=== PATIENT | female | born 1955 | race Caucasian/White ===

== ENCOUNTER → 2021-03-14 | Outpatient (CLI) | payer BC ==
[~2021-03-14] MED LIST: ALBU8.5H; AZIT20SS; HYDR1SOL
--- NOTE | 2021-03-14 12:13 | RADONC.CN ---
Radiation Oncology Hx/Consult Radiation Oncology Consult Date of Service: Mar 14, 2021 Pt Identifier Daksha Nguyễn is a 65 year old female former smoker with a history of right glottic cancer [id number] stage DIANELYS. She presented with stridor and underwent laryngectomy and partial pharyngectomy with Dr. Blandon on 02/05/21, margins were negative. She is seen for consideration of adjuvant RT. Diagnosis/Treatment History Oncologic History Summer 2020: Noted hoarseness, dysphagia and odynophagia 01/03/21 CT neck: Large right glottic mass eroding through the thyroid cartilage into the prelaryngeal fat, no nodes enlarged 01/28/21 CT chest: No lung lesions concerning for malignancy 02/05/21: Presented with stridor, underwent laryngectomy and partial pharyngectomy ([facility]) [id number] stage DIANELYS, margins negative but <0.1 cm right lateral margin Interval History Reports that she is taking all nutrition through PEG. No pain in the neck or trach. Trach requires frequent suctioning, lots of [id number] mucus. Scant blood at times with brisk cough. Has not established with [facility]. Doing osmolyte 1 can q4h. Wears nocturnal O2 with mist. Lost 20 lbs in past 2 months. Past Medical History: COPD HPL HTN Past Surgical History: As above Family History: Father colon cancer Social History: 50 pack year former smoker Never drinker Allergies / Meds Home Meds Reported Medications Albuterol Sulfate (Albuterol Sulfate Hfa) 8.5 Gm Hfa.aer.ad 03/14/21 Hydrocodone/Acetaminophen (Hydrocodone-Acetamn 7.5-325/15) 118 Ml Solution 03/14/21 Azithromycin (Azithromycin) 200 Mg/5 Ml Susp.recon 03/14/21 Review of Systems Constitutional: Reports: Weight Loss; Denies: Fatigue HEENT: Denies: Head Aches, Ear Pain, Sore Throat Pulmonary: Reports: Dyspnea, Cough Cardiovascular: Reports: Orthopnea; Denies: Chest Pain, Edema Gastrointestinal: Denies: Abdominal Pain Endocrine: Denies: Cold Intolerance Musculoskeletal: Denies: Neck pain Neurological: Denies: Weakness, Numbness Psych: Reports: Mood Normal Vital Signs Ht 62" Wt 115 lbs BMI 21 T 98.7 P 95 RR 18 BP 103/72 O2 97% Pain 0 Fatigue 0 General Exam: Alert, Cooperative, No Acute Distress Eye Exam: PERRLA, EOMI ENT EXAM: Other ENT (Oral cavity exam: Patient is edentulous. No mucosal lesions in the oral cavity visible. ) Neck Exam: Supple, Other (Tracheostomy site with some leak of secretions around flange, stoma healthy, no erythema. ); Negative: Lymphadenopathy Chest Exam: Clear to auscultation, Other (Coarse breath sounds) Heart Exam: Rate Normal, Regular Rhythm Abdomen Exam: Soft; Negative: Tenderness Extremity Exam: Negative: Edema Skin Exam: Nl turgor and temperature Neuro Exam: Normal Gait, Cranial Nerves 3-12 NL Psych Exam: Mental status NL Diagnostic and Laboratory Diagnostic Review Radiologic images, relevant labs and pathology reports were personally reviewed and discussed with Ms. Nguyễn. Assessment and Plan Impression Ms. Nguyễn is a 65 year old female former smoker with a history of right glottic cancer [id number] stage DIANELYS. She presented with stridor and underwent laryngectomy and partial pharyngectomy with Dr. Blandon on 02/05/21, margins were negative. She is seen for consideration of adjuvant RT. Stage Right glottic SCC [id number] stage DIANELYS Performance Status ECOG 1 Plan We had an extensive discussion with Ms. Nguyễn regarding the diagnosis at hand and available therapeutic options. She has healed well from her surgery. She remains NPO with PEG nut rition/hydration. I offered referral to [facility] here which will be helpful for her as she is fed and rehabilitates her swallowing after treatment is complete. Her tumor was completely excised with no positive margins, therefore she does not have an indication for adjuvant chemoradiation, rather RT alone will suffice. I recommend 60 Gy in 30 fractions to the laryngectomy bed, and stoma, with 54 Gy to the BL necks levels II-IV. I will use VMAT and daily CBCT to respect her normal tissues. We discussed the logistics of receiving radiation therapy in detail including the need for a 1-time planning session. This can occur the week of 03/18/21. We discussed the side effects of RT including fatigue, skin reaction, pain, dysphagia, dysgeusia, hypothyroidism, xerostomia. After discussing the risks, benefits and alternatives to radiation therapy, Ms. Nguyễn was amenable to pursuing radiotherapy. All questions were answered to the patient's satisfaction. We instructed the patient that if there were any questions,concerns or changes in clinical status in the interim to contact us. Recommendations Adjuvant RT 60 Gy in 30 fractions with VMAT Simulation next week Referral to [facility] Billing Statement Total time of [51] minutes was spent preparing for the visit [5], obtaining HPI [8], examining the patient [8], reviewing diagnostic tests [5], discussing m anagement options [13], coordinating care [3], and writing this note [9]. MIREILLE RUCKER MD Mar 14, 2021 12:13
== END ==
LOC: M ONCR 10:24
PROVIDERS: ATTEND General Practice
DX: C32.0 Malignant neoplasm of glottis (principal); I10 Essential (primary) hypertension; J44.9 Chronic obstructive pulmonary disease, unspecified; E78.5 Hyperlipidemia, unspecified; Z87.891 Personal history of nicotine dependence; Z79.899 Other long term (current) drug therapy

== ENCOUNTER 2021-03-26 08:34 | Outpatient (RCR) | payer MEDICARE, BC ==
--- NOTE | 2021-04-01 08:34 | RADENCPD ---
Date/Time of Encounter Date of Encounter: Apr 01, 2021 Time of Encounter: 08:30 Encounter Spoke to Sheldon (HCP, ) on the phone today. On our planning CT for adjuvant RT, there is a 1.5 cm nodule on the right aspect of the laryngectomy bed, which is concerning for either regrowth of the primary tumor or a metastic LN. Especially concerning since the margin on the right side was <0.1 cm per the pathology report from [facility]. To investigate the etiology of the lesion and aid in our decision making I have ordered an MRI stat. This can be done tomorrow, if it is concerning for gross disease, we can obtain a biopsy or proceed directly to chemoradiation at a higher dose. For the latter I would facilitate a prompt appointment with medical oncology for weekly cisplatin. Sheldon agreed with the plan. MIREILLE RUCKER MD Apr 01, 2021 08:34
== END 2021-04-12 ==
LOC: M ONCR 08:34
PROVIDERS: ATTEND General Practice
DX: C32.0 Malignant neoplasm of glottis (principal)

== ENCOUNTER 2021-03-26 10:51 | Outpatient (RCR) | payer MEDICARE, BC | END 2021-04-12 | LOC: M ST 10:51 | PROVIDERS: ATTEND General Practice | DX: C32.0 Malignant neoplasm of glottis (principal) ==

== ENCOUNTER → 2021-04-02 | Outpatient (CLI) | payer MEDICARE, BC | LOC: M RAD 10:14 | PROVIDERS: ATTEND General Practice | DX: C32.0 Malignant neoplasm of glottis (principal) ==

== ENCOUNTER → 2021-04-02 | Outpatient (CLI) | payer MEDICARE, BC ==
[~2021-04-02] MED LIST changes: +PROHANCE 279.3MG/ML 15ML VIAL ONE
[2021-04-02 11:21] LABS: ALBUMIN 3.6 GM/DL (3.2-5.2); ALT/SGPT 35 U/L (12-78); BILIRUBIN,TOTAL 0.3 MG/DL (0.2-1.0); BLOOD UREA NITROGEN 13 MG/DL (7-18); CALCIUM LEVEL 9.8 MG/DL (8.8-10.2); CARBON DIOXIDE LEVEL 31 MEQ/L (21-32); CHLORIDE LEVEL 104 MEQ/L (98-107); GLOMERULAR FILTRATION RATE > 60.0 (>45); GLUCOSE, FASTING 74 MG/DL (70-100); POTASSIUM SERUM 4.8 MEQ/L (3.5-5.1); SODIUM LEVEL 140 MEQ/L (136-145)
--- NOTE | 2021-04-02 16:18 | REPVR ---
PROCEDURE INFORMATION: Exam: MR Neck Without and With Contrast Exam date and time: 04/02/2021 1:46 PM Age: 65 years old Clinical indication: Condition or disease; Other: Mal neoplasm of goittis; Prior surgery; Surgery date: 1-6 months; Surgery type: Voice box removed TECHNIQUE: Imaging protocol: MR images of the neck without and with intravenous contrast. Contrast material: PROHANCE; Contrast volume: 10 ml; Contrast route: INTRAVENOUS (IV); COMPARISON: CT ST NECK W/ CONTRAST - OUTSIDE PRIOR 01/03/2021 1:23 PM FINDINGS: Tubes, catheters and devices: There is a tracheostomy tube in place. Nasopharynx: Unremarkable. Oropharynx: Unremarkable. Hypopharynx: Unremarkable. Larynx: Status post laryngectomy. No evidence of residual or recurrent mass at site of surgical bed. Submandibular/Parotid glands: Unremarkable. Retropharyngeal space: Unremarkable. 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 Vasculature: Unremarkable. Lymph nodes: There is a 9 mm short axis level 2 lymph node on the right. There are no larger lymph nodes. No signal Soft tissues: Unremarkable. Bones/joints: There are degenerative changes of the cervical spine with a C4 see anterolisthesis. There is edema and enhancement of the posterior paraspinous muscles from C3 to C6 peer no discrete mass. No fluid collection or hematoma. IMPRESSION: 1. Status post laryngectomy and tracheostomy. 2. No evidence of mass . 3. The largest lymph node is a 9 mm level 2 right jugular lymph node. This is slightly larger than on the preoperative scan. No significantly enlarged lymph nodes. 4. There is paraspinous edema and edema without evidence of a mass extending from C3-C6. The appearance is consistent with myositis with nonspecific etiology. This could be secondary to effects of therapy. Electronically signed by: Maulik Sanchez On 04/02/2021 16:18:03 PM
== END ==
LOC: M LAB 10:11
PROVIDERS: ATTEND General Practice
DX: C32.0 Malignant neoplasm of glottis (principal); Z93.0 Tracheostomy status; Z86.73 Personal history of transient ischemic attack (TIA), and cerebral infarction without residual deficits; R59.0 Localized enlarged lymph nodes; G95.19 Other vascular myelopathies
CPT/HCPCS: 36415; 70543; 80053; A9576

== ENCOUNTER 2021-04-16 14:59 | Outpatient (RCR) | payer MEDICARE, BC ==
[~2021-04-16 14:59] MED LIST changes: -PROHANCE 279.3MG/ML 15ML VIAL ONE
== END 2021-05-13 ==
LOC: M ONCR 14:59
PROVIDERS: ATTEND General Practice
DX: C32.0 Malignant neoplasm of glottis (principal)